=== PATIENT | female | born 1965 | race Caucasian/White ===

== ENCOUNTER 2025-02-18 09:23 | Emergency (ER) | payer MEDICAID ==
[~2025-02-18] VITALS: Ht 162.6 cm; Wt 98.9 kg
[2025-02-18 09:51] VITALS: BP 139/68; PULSE 69; RESP 18; TEMP 98; O2SAT 99
[2025-02-18] MEDS: GuaiFENesin/D-METHORPHAN [SUGAR-FREE] 200-20MG/10 ML SYRUP UDCUP PO ONE (11:11)
[2025-02-18] MEDS: KETOROLAC TROMETHAMINE 60 MG/2 ML VIAL IM ONE (11:11)
[2025-02-18] MEDS: ACETAMINOPHEN 500 MG TABLET PO ONE (11:11)
[2025-02-18 11:21] LABS: PLATELET COUNT (AUTO) 364 K/uL (150-450); RED BLOOD CELL COUNT(AUTO) 5.21 MIL/uL (4.00-5.20); RED CELL DISTRIBUTION WIDTH 16.6 % (11.5-14.5); WHITE BLOOD COUNT (AUTO) 6.7 K/uL (4.5-11.0)
[2025-02-18 11:33] LABS: CALCIUM, TOTAL 9.0 mg/dL (8.8-10.5); CREATININE 0.91 mg/dL (0.60-1.30); GLOMERULAR FILTR. RATE CALC > 60 mL/min (>60); GLUCOSE,RANDOM 97 mg/dL (70-110); SODIUM SERUM 139 mmol/L (136-145); UREA NITROGEN, BLOOD 16 mg/dL (7-18)
[2025-02-18 11:34] LABS: TROPONIN I-HIGH SENSITIVITY 4 ng/L (<51)
[2025-02-18 12:25] LABS: COVID AG,FIA SOURCE NASAL SWAB
[2025-02-18 12:50] LABS: SARS-COV2 (COVID) ANTIGEN,FIA Negative (Negative)
[2025-02-18 12:51] LABS: INFLUENZA TYPE A NEGATIVE FOR TYPE A (NEGATIVE); INFLUENZA TYPE B NEGATIVE FOR TYPE B (NEGATIVE)
[2025-02-18] MEDS ORDERED: GUAIFDM PO (13:06)
[2025-02-18] MEDS ORDERED: IBUP-1554 PO (13:06)
[2025-02-18] MEDS ORDERED: ACET-66 PO (13:06)
== END 2025-02-18 13:23 | disposition home or self-care (01) ==
LOC: EMS 09:25
DX: J40 Bronchitis, not specified as acute or chronic (principal); J06.9 Acute upper respiratory infection, unspecified; F12.90 Cannabis use, unspecified, uncomplicated; R07.89 Other chest pain; Z98.890 Other specified postprocedural states; Z20.822 Contact with and (suspected) exposure to COVID-19
CPT/HCPCS: 99285; 71045; 87426; 80048; 84484; 85025; 87804; 36415; 93005; 96372; J1885